=== PATIENT | female | born 1935 | race Caucasian/White ===

== ENCOUNTER 2022-07-10 13:37 | Inpatient (IN) | payer OTHER ==
[~2022-07-10] VITALS: Ht 144.8 cm; Wt 43.1 kg
[2022-07-10 13:59] VITALS: BP_SYST 127
[2022-07-10] MEDS ORDERED: DIPHTH,PERTUSS(ACELL),TET VAC 0.5 ML VIAL (Tdap) I.M. ONE (16:15)
[2022-07-10 16:23] LABS: BASOPHILS # (AUTO) 0.1 K/uL (0.0-0.2); EOSINOPHILS # (AUTO) 0.2 K/uL (0.0-0.4); MONOCYTES # (AUTO) 0.9 K/uL (0.0-1.0)
[2022-07-10 16:32] LABS: EOSINOPHILS % (AUTO) 1.7 % (0.0-4.0); HEMATOCRIT 37.1 % (36-48); HEMOGLOBIN 12.6 g/dL (12.0-16.0); LYMPHOCYTES # (AUTO) 2.7 K/uL (1.0-5.5); LYMPHOCYTES % (AUTO) 25.3 % (20.5-51.5); MEAN CORPUSCULAR HEMOGLOBIN 31 pg (27-31); MEAN CORPUSCULAR HGB CONC 34 % (32-36); MEAN CORPUSCULAR VOLUME 90 fL (79.0-98.0); MONOCYTES % (AUTO) 8.7 % (1.7-9.3); NEUTROPHILS # (AUTO) 6.6 K/uL (1.8-7.7); NEUTROPHILS % (AUTO) 63.3 % (40.0-70.0); PLATELET COUNT (AUTO) 323 K/uL (130-430); RED BLOOD CELL COUNT(AUTO) 4.14 MIL/uL (4.2-6.2); RED CELL DISTRIBUTION WIDTH 14.4 % (9.0-15.0); WHITE BLOOD COUNT (AUTO) 10.5 K/uL (4.8-10.8)
[2022-07-10 17:01] LABS: ANION GAP 5 (5-15); CALCIUM 9.9 mg/dL (8.4-11.0); CHLORIDE 107 mmol/L (98-107); CREATININE 1.04 mg/dL (0.55-1.30); GLUCOSE 86 mg/dL (70-99); UREA NITROGEN, BLOOD 30 mg/dL (8-21)
[2022-07-10 17:04] LABS: BILIRUBIN,URINE NEGATIVE (NEGATIVE); BLOOD, URINE NEGATIVE (NEGATIVE); CLARITY/URINE CLEAR (CLEAR); COLOR,URINE YELLOW (YELLOW); GLUCOSE,URINE NEGATIVE (NEGATIVE); KETONES,URINE NEGATIVE (NEGATIVE); LEUKOCYTE ESTERASE ,URINE NEGATIVE (NEGATIVE); PH,URINE 5.5 (5.0-8.0); PROTEIN URINE NEGATIVE (NEGATIVE); UROBILINOGEN,URINE 0.2 (0.2-1.0)
[2022-07-10 17:09] LABS: ALANINE AMINOTRANSFERASE 10 U/L (12-78); ALBUMIN 3.5 g/dL (3.4-4.8); ASPARTATE AMINOTRANSFERASE 16 U/L (10-37); TOTAL BILIRUBIN 0.3 mg/dL (0.0-1.0)
[2022-07-10 17:11] LABS: BACTERIA,URINE RARE /HPF (None Seen); RBC,URINE 0-3 /HPF (0-3); WBC,URINE NONE SEEN /HPF (0-3)
[2022-07-10 17:12] LABS: MUCUS,URINE 1+ /LPF (None Seen)
[2022-07-10 17:15] LABS: PHOSPHORUS 3.6 mg/dL (2.7-4.5)
[2022-07-10] MEDS ORDERED: CEPH-548 PO ×2 (17:17)
[2022-07-10 17:26] LABS: NITRITE, URINE NEGATIVE (NEGATIVE)
[2022-07-10] MEDS ORDERED: LORazepam 2 MG/ML VIAL IM ONE (17:30)
[2022-07-10] MEDS ORDERED: NACL 0.9% 1,000 ML IV ONE (17:30)
[2022-07-10] MEDS ORDERED: SODIUM BICARBONATE 8.4% JECT 50 MEQ in 0.45% NACL 1,000 ML IVP SCH (18:00)
[2022-07-10] MEDS ORDERED: cefTRIAXone 1 GM in D5W 50 ML IV ONE (18:00)
[2022-07-10] MEDS ORDERED: CALCIUM GLUCONATE 1 GM in NS 100 ML IV ONE (18:00)
[2022-07-10] MEDS ORDERED: SODIUM POLYSTYRENE SULFONATE 15 GM/60 ML UDBTL PO ONE (18:00)
[2022-07-10] MEDS ORDERED: PHEDM120 PO (18:16)
[2022-07-10] MEDS ORDERED: DOCU-144 PO (18:16)
[2022-07-10] MEDS ORDERED: DIF100 PO (18:16)
[2022-07-10] MEDS ORDERED: ASA81 PO (18:16)
[2022-07-10] MEDS ORDERED: ACET325T53 PO (18:16)
[2022-07-10] MEDS ORDERED: AZEL6DRO5 RIGHT EYE (18:16)
[2022-07-10] MEDS ORDERED: METO25TA3 PO (18:16)
[2022-07-10] MEDS ORDERED: LEVO100C2 PO (18:16)
[2022-07-10] MEDS ORDERED: OMEP20CA15 PO (18:16)
[2022-07-10] MEDS ORDERED: MAGN400T10 PO (18:16)
[2022-07-10] MEDS ORDERED: SER25 PO ×2 (18:16)
[2022-07-10] MEDS ORDERED: KEPPRA PO (18:16)
[2022-07-10] MEDS ORDERED: VITD400 PO (18:16)
[2022-07-10] MEDS ORDERED: SODIUM BICARBONATE 8.4% JECT 50 MEQ/50 ML SYRINGE ONE (19:32)
[2022-07-10] MEDS ORDERED: cefTRIAXone 1 GM VIAL ONE (19:32)
[2022-07-10] MEDS ORDERED: SODIUM BICARBONATE 8.4% JECT 50 MEQ/50 ML SYRINGE IVP ONE (19:45)
[2022-07-10] MEDS ORDERED: LORazepam 2 MG/ML VIAL IVP ONE (22:00)
[2022-07-10 22:10] VITALS: BP_SYST 148
[2022-07-10] MEDS ORDERED: LORazepam 2 MG/ML VIAL IVP PRN (23:00)
[2022-07-10 23:51] LABS: ANION GAP 3 (5-15); CALCIUM 9.1 mg/dL (8.4-11.0); CHLORIDE 108 mmol/L (98-107); CREATININE 0.83 mg/dL (0.55-1.30); GLUCOSE 83 mg/dL (70-99); UREA NITROGEN, BLOOD 25 mg/dL (8-21)
[2022-07-11] MEDS ORDERED: HALOPERIDOL LACTATE 5 MG/ML VIAL IM ONE (01:45)
[2022-07-11] MEDS ORDERED: HALOPERIDOL LACTATE 5 MG/ML VIAL IM PRN (02:45)
[2022-07-11 04:00] VITALS: BP_SYST 136
[2022-07-11 08:06] VITALS: BP_SYST 136
[2022-07-11] MEDS: LORazepam 2 MG/ML VIAL IVP PRN ×2 (09:07→15:51)
[2022-07-11 14:37] VITALS: BP_SYST 143
[2022-07-11 17:24] VITALS: BP_SYST 130
[2022-07-11] MEDS ORDERED: FLUCONAZOLE 100 MG TABLET (DIFLUCAN) PO SCH (18:45)
[2022-07-11] MEDS ORDERED: QUEtiapine FUMARATE 25 MG TABLET PO PRN (18:45)
[2022-07-11] MEDS ORDERED: ACETAMINOPHEN 325 MG TABLET PO PRN (18:45)
[2022-07-11] MEDS ORDERED: PROMETHAZINE-DM 6.25 MG-15 MG/5 ML UDC PO PRN (18:45)
[2022-07-11 20:15] VITALS: BP_SYST 129
[2022-07-11 20:16] VITALS: BP_SYST 129
[2022-07-11] MEDS ORDERED: AZELASTINE HCL RIGHT EYE SCH (21:00)
[2022-07-11] MEDS: LevETIRAcetam 500 MG/5 ML UDC ORAL LIQUID PO SCH (21:15)
[2022-07-11] MEDS: cephALEXin 500 MG CAPSULE PO SCH (21:15)
[2022-07-11] MEDS: QUEtiapine FUMARATE 25 MG TABLET PO SCH (21:15)
[2022-07-12] VITALS: BP_SYST 151
[2022-07-12 07:00] LABS: BASOPHILS # (AUTO) 0.1 K/uL (0.0-0.2); EOSINOPHILS # (AUTO) 0.1 K/uL (0.0-0.4); EOSINOPHILS % (AUTO) 1.7 % (0.0-4.0); HEMATOCRIT 37.7 % (36-48); HEMOGLOBIN 12.7 g/dL (12.0-16.0); LYMPHOCYTES # (AUTO) 1.2 K/uL (1.0-5.5); LYMPHOCYTES % (AUTO) 17.7 % (20.5-51.5); MEAN CORPUSCULAR HEMOGLOBIN 30 pg (27-31); MEAN CORPUSCULAR HGB CONC 34 % (32-36); MEAN CORPUSCULAR VOLUME 90 fL (79.0-98.0); MONOCYTES # (AUTO) 0.6 K/uL (0.0-1.0); MONOCYTES % (AUTO) 8.7 % (1.7-9.3); NEUTROPHILS % (AUTO) 70.9 % (40.0-70.0); PLATELET COUNT (AUTO) 306 K/uL (130-430); RED BLOOD CELL COUNT(AUTO) 4.21 MIL/uL (4.2-6.2)
[2022-07-12 07:57] LABS: ALANINE AMINOTRANSFERASE 13 U/L (12-78); ALBUMIN 3.2 g/dL (3.4-4.8); ANION GAP 11 (5-15); ASPARTATE AMINOTRANSFERASE 18 U/L (10-37); CHLORIDE 106 mmol/L (98-107); CREATININE 0.78 mg/dL (0.55-1.30); GLUCOSE 75 mg/dL (70-99); TOTAL BILIRUBIN 0.5 mg/dL (0.0-1.0); UREA NITROGEN, BLOOD 18 mg/dL (8-21)
[2022-07-12 08:20] VITALS: BP_SYST 164
[2022-07-12] MEDS: QUEtiapine FUMARATE 25 MG TABLET PO SCH ×2 (08:52→22:18)
[2022-07-12] MEDS: cephALEXin 500 MG CAPSULE PO SCH (08:52)
[2022-07-12] MEDS: METOPROLOL SUCCINATE 25 MG TAB.SR.24H (TOPROL XL) PO SCH (08:54)
[2022-07-12] MEDS: CHOLECALCIFEROL (VITAMIN D-3) 400 UNIT TABLET PO SCH (09:00)
[2022-07-12] MEDS: AZELASTINE 0.05% OP SCH ×2 (09:00→21:00)
[2022-07-12] MEDS: ASPIRIN 81 MG TAB.CHEW PO SCH (09:00)
[2022-07-12] MEDS: MAGNESIUM OXIDE 400 MG TABLET PO SCH (09:00)
[2022-07-12] MEDS: DOCUSATE SODIUM 100 MG CAPSULE PO SCH (09:00)
[2022-07-12] MEDS: PANTOPRAZOLE SODIUM 40 MG TAB PO SCH (09:00)
[2022-07-12] MEDS ORDERED: OMEPRAZOLE Non-Formulary 20 MG CAPSULE.DR PO SCH (09:00)
[2022-07-12] MEDS: LEVOTHYROXINE SODIUM 0.1 MG TABLET PO SCH (09:22)
[2022-07-12 11:23] VITALS: BP_SYST 157
[2022-07-12] MEDS: LevETIRAcetam 500 MG/5 ML UDC ORAL LIQUID PO SCH ×2 (12:02→22:19)
[2022-07-12] MEDS: cefTRIAXone 1 GM in D5W 50 ML IV SCH (14:12)
[2022-07-12 15:45] VITALS: BP_SYST 154
[2022-07-13 01:36] VITALS: BP_SYST 138
[2022-07-13] MEDS: LEVOTHYROXINE SODIUM 0.1 MG TABLET PO SCH (06:52)
[2022-07-13 08:00] VITALS: BP_SYST 158
[2022-07-13] MEDS: MAGNESIUM OXIDE 400 MG TABLET PO SCH (08:24)
[2022-07-13] MEDS: ASPIRIN 81 MG TAB.CHEW PO SCH (08:24)
[2022-07-13] MEDS: QUEtiapine FUMARATE 25 MG TABLET PO SCH ×2 (08:24→22:28)
[2022-07-13] MEDS: DOCUSATE SODIUM 100 MG CAPSULE PO SCH (08:24)
[2022-07-13] MEDS: METOPROLOL SUCCINATE 25 MG TAB.SR.24H (TOPROL XL) PO SCH (08:25)
[2022-07-13] MEDS: CHOLECALCIFEROL (VITAMIN D-3) 400 UNIT TABLET PO SCH (08:26)
[2022-07-13] MEDS: PANTOPRAZOLE SODIUM 40 MG TAB PO SCH (08:26)
[2022-07-13] MEDS: LevETIRAcetam 500 MG/5 ML UDC ORAL LIQUID PO SCH ×2 (08:26→22:28)
[2022-07-13] MEDS: AZELASTINE 0.05% OP SCH ×2 (08:27→21:00)
[2022-07-13 11:26] VITALS: BP_SYST 148
[2022-07-13] MEDS: cefTRIAXone 1 GM in D5W 50 ML IV SCH (14:15)
[2022-07-13] MEDS: LORazepam 2 MG/ML VIAL IVP PRN (14:18)
[2022-07-13 15:31] VITALS: BP_SYST 141
[2022-07-13 20:00] VITALS: BP_SYST 142
[2022-07-14 00:44] VITALS: BP_SYST 140
[2022-07-14] MEDS: LEVOTHYROXINE SODIUM 0.1 MG TABLET PO SCH (06:33)
[2022-07-14 08:00] VITALS: BP_SYST 126
[2022-07-14] MEDS: AZELASTINE 0.05% OP SCH ×2 (09:00→22:24)
[2022-07-14] MEDS: LevETIRAcetam 500 MG/5 ML UDC ORAL LIQUID PO SCH ×2 (10:06→22:24)
[2022-07-14] MEDS: ASPIRIN 81 MG TAB.CHEW PO SCH (10:06)
[2022-07-14] MEDS: PANTOPRAZOLE SODIUM 40 MG TAB PO SCH (10:07)
[2022-07-14] MEDS: DOCUSATE SODIUM 100 MG CAPSULE PO SCH (10:07)
[2022-07-14] MEDS: QUEtiapine FUMARATE 25 MG TABLET PO SCH (10:08)
[2022-07-14] MEDS: METOPROLOL SUCCINATE 25 MG TAB.SR.24H (TOPROL XL) PO SCH (10:08)
[2022-07-14] MEDS: CHOLECALCIFEROL (VITAMIN D-3) 400 UNIT TABLET PO SCH (10:08)
[2022-07-14] MEDS: MAGNESIUM OXIDE 400 MG TABLET PO SCH (10:09)
[2022-07-14 11:10] VITALS: BP_SYST 138
[2022-07-14] MEDS: LORazepam 2 MG/ML VIAL IVP PRN (12:22)
[2022-07-14] MEDS: cefTRIAXone 1 GM in D5W 50 ML IV SCH (14:58)
[2022-07-14 15:15] VITALS: BP_SYST 120
[2022-07-14 20:00] VITALS: BP_SYST 130
[2022-07-15 00:26] VITALS: BP_SYST 125
[2022-07-15] MEDS: LEVOTHYROXINE SODIUM 0.1 MG TABLET PO SCH (06:27)
[2022-07-15 08:00] VITALS: BP_SYST 122
[2022-07-15] MEDS: CHOLECALCIFEROL (VITAMIN D-3) 400 UNIT TABLET PO SCH (09:36)
[2022-07-15] MEDS: AZELASTINE 0.05% OP SCH ×2 (09:36→21:00)
[2022-07-15] MEDS: ASPIRIN 81 MG TAB.CHEW PO SCH (09:36)
[2022-07-15] MEDS: LevETIRAcetam 500 MG/5 ML UDC ORAL LIQUID PO SCH ×2 (09:36→22:31)
[2022-07-15] MEDS: PANTOPRAZOLE SODIUM 40 MG TAB PO SCH (09:36)
[2022-07-15] MEDS: MAGNESIUM OXIDE 400 MG TABLET PO SCH (09:37)
[2022-07-15] MEDS: METOPROLOL SUCCINATE 25 MG TAB.SR.24H (TOPROL XL) PO SCH (09:37)
[2022-07-15 11:52] VITALS: BP_SYST 125
[2022-07-15] MEDS: LORazepam 2 MG/ML VIAL IVP PRN (12:56)
[2022-07-15] MEDS ORDERED: LORazepam 2 MG/ML VIAL IVP ONE (13:15)
[2022-07-15 16:00] VITALS: BP_SYST 129
[2022-07-15] MEDS: cefTRIAXone 1 GM in D5W 50 ML IV SCH (16:01)
[2022-07-15 20:48] VITALS: BP_SYST 135
[2022-07-16] MEDS: LORazepam 2 MG/ML VIAL IVP PRN (06:02)
[2022-07-16] MEDS: LEVOTHYROXINE SODIUM 0.1 MG TABLET PO SCH (06:04)
[2022-07-16 08:00] VITALS: BP_SYST 123
[2022-07-16] MEDS: ASPIRIN 81 MG TAB.CHEW PO SCH (09:36)
[2022-07-16] MEDS: LevETIRAcetam 500 MG/5 ML UDC ORAL LIQUID PO SCH (09:36)
[2022-07-16] MEDS: MAGNESIUM OXIDE 400 MG TABLET PO SCH (09:36)
[2022-07-16] MEDS: AZELASTINE 0.05% OP SCH (09:36)
[2022-07-16] MEDS: CHOLECALCIFEROL (VITAMIN D-3) 400 UNIT TABLET PO SCH (09:37)
[2022-07-16] MEDS: PANTOPRAZOLE SODIUM 40 MG TAB PO SCH (09:37)
[2022-07-16] MEDS: METOPROLOL SUCCINATE 25 MG TAB.SR.24H (TOPROL XL) PO SCH (09:37)
[2022-07-16 12:00] VITALS: BP_SYST 138
[2022-07-16 13:20] VITALS: BP_SYST 138
[2022-07-16] MEDS: cefTRIAXone 1 GM in D5W 50 ML IV SCH (13:37)
== END 2022-07-16 14:30 | DRG 605 ==
LOC: SED 13:37 → STU 17:56 → SMU 07-14 13:39
PROVIDERS: ADMIT Internal Medicine; ATTEND Internal Medicine
PROC: 0HQ0XZZ Repair Scalp Skin, External Approach (ICD-10-PCS; principal; 2022-07-11)
DX: S01.01XA Laceration without foreign body of scalp, initial encounter (principal); N39.0 Urinary tract infection, site not specified; E87.3 Alkalosis; J98.11 Atelectasis; Z20.822 Contact with and (suspected) exposure to COVID-19; F03.90 Unspecified dementia, unspecified severity, without behavioral disturbance, psychotic disturbance, mood disturbance, and anxiety; E87.5 Hyperkalemia; W18.39XA Other fall on same level, initial encounter; R53.81 Other malaise; E03.9 Hypothyroidism, unspecified; Z79.899 Other long term (current) drug therapy; I69.392 Facial weakness following cerebral infarction; Y99.8 Other external cause status; Y93.89 Activity, other specified; Y92.89 Other specified places as the place of occurrence of the external cause
CPT/HCPCS: 36415; 70450-TC; 70551; 71045; 76376; 80048; 80053; 81000; 83735; 84100; 84484; 85025; 87081; 90715; 93005; 96365; 96372; 96375; 97110-GP; 97116-GP; 97530-GP; 99285; G0378; J0610; J0696; J1630; J2060; J7030; J7060